=== PATIENT | male | born 1955 | race Caucasian/White ===

== ENCOUNTER → 2024-12-18 09:20 | Outpatient (REF) | payer MEDICARE, OTHER, SELFPAY ==
[2024-12-18 11:12] LABS: Blood Urea Nitrogen 15 mg/dl (9-20); Calcium 10.3 mg/dl (8.4-10.2); Carbon Dioxide 30 mmol/L (22-30); Chloride 101 mmol/L (98-107); Glucose 92 mg/dl (70-99); Potassium 4.8 mmol/L (3.5-5.1); Sodium 135 mmol/L (135-145); eGFR > 60.00
== END ==
LOC: SDSPAT 09:20
PROVIDERS: ATTENDING PHYSICIAN Orthopaedic Surgery; FAMILY PHYSICIAN Family Medicine
DX: S46.011A Strain of muscle(s) and tendon(s) of the rotator cuff of right shoulder, initial encounter (principal)
CPT/HCPCS: 36415; 80048

== ENCOUNTER 2025-01-03 06:32 | Day surgery (SDC) | payer MEDICARE, OTHER, SELFPAY ==
[2024-12-18 14:11] VITALS: BMI 25.0
[2025-01-03 12:29] VITALS: BMI 25.0
[2025-01-03 12:32] VITALS: BP 159/85
[2025-01-03] MEDS: CELEBREX 200 MG PO (12:47)
[2025-01-03] MEDS: TYLENOL 1000 MG PO (12:47)
[2025-01-03] MEDS: NORMOSOL-R/PLASMALYTE-A 1000 IV (12:47)
[2025-01-03 17:49] VITALS: BP 159/85; BP 172/86
[2025-01-03 18:00] VITALS: BP 189/80
[2025-01-03 18:06] VITALS: BP 174/88
[2025-01-03 18:15] VITALS: BP 145/84
[2025-01-03 18:52] VITALS: BP 164/80
== END 2025-01-03 18:54 | disposition home or self-care (01) ==
LOC: SDS 06:32
PROVIDERS: ATTENDING PHYSICIAN Orthopaedic Surgery; FAMILY PHYSICIAN Family Medicine
DX: S46.011A Strain of muscle(s) and tendon(s) of the rotator cuff of right shoulder, initial encounter (principal); S46.211A Strain of muscle, fascia and tendon of other parts of biceps, right arm, initial encounter; X58.XXXA Exposure to other specified factors, initial encounter; M19.011 Primary osteoarthritis, right shoulder; M75.41 Impingement syndrome of right shoulder
CPT/HCPCS: 29827; C1713